=== PATIENT | male | born 1950 | race Hispanic/Latino ===

== ENCOUNTER 2021-05-26 18:57 | Emergency (ER) | payer MEDICARE ==
[~2021-05-26] VITALS: Ht 188 cm; Wt 93.0 kg
[2021-05-26 19:27] LABS: BASOPHILS % (AUTO) 0.5 % (0.0-5.0); EOSINOPHILS % (AUTO) 2.5 % (0.0-8.0); HEMATOCRIT 43.5 % (42-54); LYMPHOCYTES % (AUTO) 17.6 % (21.0-51.0); MEAN CORPUSCULAR HEMOGLOBIN 26.5 pg (27.0-33.0); MEAN CORPUSCULAR VOLUME 82.9 fL (79-99); MONOCYTES % (AUTO) 11.6 % (3.0-13.0); NEUTROPHILS % (AUTO) 67.5 % (40.0-77.0); PLATELET COUNT (AUTO) 172 K/uL (130-400); RED BLOOD CELL COUNT(AUTO) 5.25 MIL/uL (4.50-6.20); RED CELL DISTRIBUTION WIDTH 14.3 % (11.0-15.5); WHITE BLOOD COUNT (AUTO) 6.4 K/uL (4.8-10.8)
[2021-05-26] MEDS ORDERED: 0.9% NACL 500ML IV.SOLN 500 ML IV ONE (19:30)
[2021-05-26] MEDS ORDERED: SOLU-MEDROL 125MG VIAL IVP ONE (19:30)
[2021-05-26] MEDS ORDERED: MAG/ALUM/SIMETH 30 ML UDCUP PO ONE ×2 (19:30→23:30)
[2021-05-26] MEDS ORDERED: FAMOTIDINE 20MG VIAL IV ONE (19:30)
[2021-05-26 19:39] VITALS: BP 169/89
[2021-05-26 19:40] LABS: CREATININE 1.4 mg/dL (0.5-1.5); POTASSIUM 4.1 mmol/L (3.5-5.1)
[2021-05-26 19:49] LABS: ALBUMIN 3.9 g/dL (3.5-5.0); BILIRUBIN,TOTAL 0.4 mg/dL (0.2-1.0); TOTAL PROTEIN, SERUM 7.2 g/dL (6.0-8.3)
[2021-05-26] MEDS ORDERED: METOCLOPRAMIDE 10 MG/2 ML VIAL IVP ONE (20:30)
[2021-05-26] MEDS ORDERED: PANTOPRAZOLE 40 MG/VIAL IVP ONE (20:30)
[2021-05-26 20:57] LABS: APPEARANCE,URINE CLEAR (CLEAR); BILIRUBIN,URINE NEGATIVE (NEGATIVE); COLOR,URINE YELLOW (YELLOW); GLUCOSE, URINE (UA) 500 mg/dL (NEGATIVE); KETONES,URINE NEGATIVE (NEGATIVE); LEUKOCYTE ESTERASE ,URINE NEGATIVE (NEGATIVE); NITRATE,URINE NEGATIVE (NEGATIVE); OCCULT BLOOD,URINE NEGATIVE (NEGATIVE); PH,URINE 6.5 (5.0-8.0); PROTEIN,URINE NEGATIVE (NEGATIVE); UROBILINOGEN,URINE 0.2 mg/dL (0.2-1.0)
[2021-05-26 21:10] LABS: BACTERIA,URINE None Seen /HPF (None Seen); RBC,URINE 0-1 /HPF (0-1); SQUAMOUS EPITHELIAL CELL,UR None Seen /HPF (0-2); WBC,URINE 0-1 /HPF (0-1)
[2021-05-26] MEDS ORDERED: ONDANSETRON 4MG INJ ONE (22:09)
[2021-05-26] MEDS ORDERED: LIDOCAINE HCL 2% VISCOUS 15 ML UDCUP ONE ×2 (22:09→23:06)
[2021-05-26] MEDS ORDERED: ONDANSETRON 4MG INJ IVP ONE (22:30)
[2021-05-26] MEDS ORDERED: LIDOCAINE HCL/PF 4% 40 MG/1 ML 5ML AMP IH ONE (22:30)
[2021-05-26] MEDS ORDERED: LIDOCAINE HCL-MPF 2% 5ML VIAL IH ONE (23:00)
[2021-05-26] MEDS ORDERED: MAG/ALUM/SIMETH 30 ML UDCUP ONE (23:06)
[2021-05-26] MEDS ORDERED: LIDOCAINE HCL 2% VISCOUS 15 ML UDCUP PO ONE (23:30)
[2021-05-26] MEDS ORDERED: FAMO-136 PO (23:53)
[2021-05-26] MEDS ORDERED: ALBU8.5H8 IH (23:58)
[2021-05-27] MEDS ORDERED: med TP (00:03)
== END 2021-05-27 00:18 | disposition home or self-care (01) ==
LOC: EDH 18:57
DX: K21.9 Gastro-esophageal reflux disease without esophagitis (principal); R06.00 Dyspnea, unspecified; Z20.822 Contact with and (suspected) exposure to COVID-19; E11.9 Type 2 diabetes mellitus without complications; I10 Essential (primary) hypertension; Z88.0 Allergy status to penicillin
CPT/HCPCS: 36415; 71045; 80053; 81001; 84484; 85025; 87635; 93005; 94640; 96374; 96375; 99285; C9113; C9803; J2405; J2765; J2930; J3490 ×2; J7040

== ENCOUNTER 2023-03-07 16:10 | Emergency (ER) | payer MEDICARE ==
[~2023-03-07] VITALS: Ht 188 cm; Wt 86.2 kg
[~2023-03-07 16:10] MED LIST: ALBU8.5H8 IH; FAMO-136 PO; med TP
[2023-03-07 18:09] LABS: BASOPHILS # (AUTO) 0.02 K/uL (0.00-0.20); BASOPHILS % (AUTO) 0.5 % (0.0-5.0); EOSINOPHILS # (AUTO) 0.12 K/uL (0.00-0.70); EOSINOPHILS % (AUTO) 2.7 % (0.0-8.0); HEMATOCRIT 35.4 % (42-54); IMMATURE GRANULOCYTE ABSOLUTE 0.02 K/uL (0-1); LYMPHOCYTES # (AUTO) 1.2 K/uL (1.0-4.8); LYMPHOCYTES % (AUTO) 27.2 % (21.0-51.0); MEAN CORPUSCULAR HEMOGLOBIN 22.9 pg (27.0-33.0); MEAN CORPUSCULAR HGB CONC 29.1 g/dL (32.0-36.0); MEAN CORPUSCULAR VOLUME 78.7 fL (79-99); MONOCYTES # (AUTO) 0.7 K/uL (0.1-1.0); MONOCYTES % (AUTO) 16.2 % (3.0-13.0); NEUTROPHILS # (AUTO) 2.3 K/uL (1.8-7.7); NEUTROPHILS % (AUTO) 52.9 % (40.0-77.0); PLATELET COUNT (AUTO) 237 K/uL (130-400); WHITE BLOOD COUNT (AUTO) 4.4 K/uL (4.8-10.8)
[2023-03-07 18:21] LABS: CREATININE 1.6 mg/dL (0.5-1.5); POTASSIUM 4.8 mmol/L (3.5-5.1)
[2023-03-07 18:26] LABS: ALBUMIN 3.2 g/dL (3.5-5.0); BILIRUBIN,TOTAL 0.4 mg/dL (0.2-1.0); TOTAL PROTEIN, SERUM 6.7 g/dL (6.0-8.3)
[2023-03-07] MEDS ORDERED: CEFTRIAXONE 1G VIAL IM ONE (18:30)
[2023-03-07] MEDS ORDERED: LIDOCAINE HCL 1% 20 ML VIAL ONE (19:43)
[2023-03-07 20:00] VITALS: BP 112/68; PULSE 76; RESP 16; O2SAT 99
[2023-03-07] MEDS ORDERED: CEPH500T PO (20:16)
== END 2023-03-07 20:16 | disposition home or self-care (01) ==
LOC: EDH 16:10
DX: T81.89XA Other complications of procedures, not elsewhere classified, initial encounter (principal); L03.116 Cellulitis of left lower limb; E11.9 Type 2 diabetes mellitus without complications; I10 Essential (primary) hypertension; Z88.0 Allergy status to penicillin
CPT/HCPCS: 99283; 80053; 85025; 36415; 96372; J0696

== ENCOUNTER 2024-03-23 19:19 | Observation (INO) | payer MEDICARE ==
[~2024-03-23] VITALS: Ht 188 cm; Wt 87.3 kg
[~2024-03-23 19:19] MED LIST changes: +CEPH500T PO
[2024-03-23 20:50] LABS: BASOPHILS # (AUTO) 0.04 K/uL (0.00-0.20); BASOPHILS % (AUTO) 0.6 % (0.0-5.0); EOSINOPHILS # (AUTO) 0.16 K/uL (0.00-0.70); EOSINOPHILS % (AUTO) 2.3 % (0.0-8.0); HEMATOCRIT 44.7 % (42-54); IMMATURE GRANULOCYTE ABSOLUTE 0.02 K/uL (0-1); LYMPHOCYTES # (AUTO) 1.1 K/uL (1.0-4.8); LYMPHOCYTES % (AUTO) 15.5 % (21.0-51.0); MEAN CORPUSCULAR HEMOGLOBIN 25.4 pg (27.0-33.0); MEAN CORPUSCULAR HGB CONC 31.1 g/dL (32.0-36.0); MEAN CORPUSCULAR VOLUME 81.7 fL (79-99); MONOCYTES # (AUTO) 0.8 K/uL (0.1-1.0); MONOCYTES % (AUTO) 11.8 % (3.0-13.0); NEUTROPHILS # (AUTO) 4.9 K/uL (1.8-7.7); NEUTROPHILS % (AUTO) 69.5 % (40.0-77.0); PLATELET COUNT (AUTO) 155 K/uL (130-400); RED BLOOD CELL COUNT(AUTO) 5.47 MIL/uL (4.50-6.20); WHITE BLOOD COUNT (AUTO) 7.1 K/uL (4.8-10.8)
[2024-03-23 21:06] LABS: CREATININE 1.9 mg/dL (0.5-1.3); POTASSIUM 5.3 mmol/L (3.5-5.1)
[2024-03-23 21:11] LABS: ALBUMIN 3.3 g/dL (3.5-5.0); BILIRUBIN,TOTAL 0.4 mg/dL (0.2-1.0); TOTAL PROTEIN, SERUM 6.7 g/dL (6.0-8.3)
--- NOTE | 2024-03-23 21:53 | HMCIMG ---
Exam Type: CT cervical spine without contrast Clinical Information: new 1 week right submandibular mass , history of H/N cancer Comparison: None Technique: Spiral axial images were performed from the base of the skull down to the thoracic vertebral bodies. Both sagittal and coronal reconstructions were performed. CT Dose Index (CTDI): 12.85 mGy Dose Length Product (DLP): 282.6 total Findings: There are degenerative changes. Degenerative disc disease is noted at multiple levels. There is reversal of normal cervical lordosis consistent with degeneration and spasm. There are no fractures. There is facet hypertrophy at multiple levels. IMPRESSION: Degenerative changes as noted. No acute pathology. No fractures seen. This study was performed using dose reduction techniques to include automated exposure control and/or adjustment of the mA and/or kV according to patient size.
--- NOTE | 2024-03-23 23:51 | HP ---
History of Present Illness Reason for Visit: neck pain History of Present Illness Mr. Salazar is a 73-year-old male that was seen and examined today on 03/23/2024. Patient is a good historian and personal health. Patient reports that he came to the emergency department with a chief complaint of neck pain. Onset was two days ago. Location is to right submandibular area. Duration is constant. There was no alleviating factors. Character is describe d as throbbing pain. Symptoms are aggravated with palpation. Patient denies any associated fever or chills. Patient reports a past medical history of "neck cancer." Today in the emergency department CBC unremarkable, BUN 20, creatinine 1.9, no urinalysis has been collected or sent to lab, CT of the soft tissue neck shows did not degenerative changes to the C-spine. Area of the attention was not addressed by radiology service in radiology report therefore emergency room physician contacted radiologist on-call, who recommended that patient get an MR I in the a.m. for further evaluation. Past Medical History ADDITIONAL PAST MEDICAL HISTORY: [Hypertension, CAD, " neck cancer, "Diabetes mellitius type2, GERD] SOCIAL HISTORY: [Negative for smoking, alcohol use, drug use. Patient lives alone. Patient is a retired teacher. Patient has good access to health care through his insurance. Patient is typically independent of all his ADLs. Patient denies difficulty pain is bills. Patient usually lives in [place] but is visiting this geographical location for 2-3 months.] SURGICAL HISTORY: [CABG, tonsillectomy, endoscopy x3] Review of Systems General: No Fever, No Chills, No Night Sweats, No Fatigue, No Malaise, No Appetite, No Other HEENT: No Head Aches, No Visual Changes, No Eye Pain, No Ear Pain, No Dysphasia, No Sinus Congestion, No Post Nasal Drip, No Sore Throat, No Other Pulmonary: No Dyspnea, No Cough, No Pleuritic Chest Pain, No Other Cardiovascular: No: Chest Pain, Palpitations, Orthopnea, Paroxysmal Noc. Dyspnea, Edema, Lt Headedness, Other Gastrointestinal: No: Nausea, Vomiting, Abdominal Pain, Diarrhea, Constipation, Melena, Hematochezia, Other Genitourinary: No Dysuria, No Frequency, No Incontinence, No Hematuria, No Retention, No Other Musculoskeletal: neck pain; No: other, shoulder pain, arm pain, back pain, hand pain, leg pain, foot pain Skin: No Urticaria, No Rash, No Other Neurological: No: Weakness, Numbness, Incoordination, Change in speech, Confusion, Seizures, Other Allergies: Coded Allergies: Penicillins (Unverified Allergy, Unknown, 05/26/21) Scheduled Cephalexin (Cephalexin), 500 MG PO TID Famotidine (Pepcid), 20 MG PO BID Scheduled PRN Albuterol Sulfate (Proair Hfa), 8.5 GM IH Q6HPRN PRN for SHORTNESS OF BREATH Durable Medical Equipment [med], UNIT TP AD, (DME) Exam Vital Signs Vital Signs Date Time Temp Pulse Resp B/P (MAP) Pulse Ox O2 Delivery O2 Flow Rate FiO2 03/23/24 21:56 97.3 88 20 130/84 98 Room Air* 0 21 General Appearance: Alert, Oriented X3, Cooperative, No acute distress, Other (Right submandibular swelling and tenderness) HEENT: Atraumatic, EOMI Respiratory: Clear to auscultation, Normal air movement, NL respiratory effort Cardiovascular: Normal S1, Normal S2 Abdominal: Normal bowel sounds, Soft, No tenderness Extremities: No edema Skin: No significant lesion Neuro: Normal gait, Normal speech, Strength at 5/5 X4 ext, Sensation intact, Cranial nerves 3-12 NL Psych/Mental Status: Mental status NL, Mood NL, Thoughts/Content NL Assessment/Plan ASSESSMENT: [ Acute kidney injury, POA Hypertension, POA Neck pain, POA Diabetes mellitius type2 CAD] PLAN: [ Admit patient to medical floor as inpatient status. Calculate FENA Check urine sodium, creatinine, osmolality Avoid nephrotoxic agents when possible Renally dose all medications when possible Consider consulting Nephrology service if any worsening renal function or evidence of ATN. Monitor patient's labs. Weight patient daily. Monitor intake and output. IV fluid maintenance therapy lactated Ringer's at 75 mL/HR Hydralazine 10 mg IV every 4 hours for systolic blood pressure greater than 160 mmHg MRI of face and neck in the a.m.. , follow up with the results Check hemoglobin A1c in a.m. Glucometer checks a.c. and HS 1800 ADA diet Humulin R sliding scale 1/2 dose GI prophylaxis, famotidine 40 mg by mouth once daily. DVT prophylaxis, heparin 5000 units subcutaneously twice daily. ADVANCED CARE PLANNING 1. Which of the following were discussed? Hospice Care - Yes Therapeutic options - Yes Advance Directives - Yes- patient states he does not have any advance directives in place at this time, however his daughter Deonte Salazar can make decisions for him if he becomes unable. Other discussions - patient wishes to remain a full code At this time 2. Discussed with who? patient 3. Voluntary nature of this service was explained to the patient? Yes 4. Amount of time spent - ___ 16 minutes ____ 5. Reviewed by Physician? (if this service was performed by NPP) Yes This document was generated in part using voice recognition software, occasional wrong word or sound alike substitutions may have occurred due to the inherent limitations of voice recognition software. Read the chart carefully and recognize using context, where the substitutions have occurred. Although every effort was made to edit the content, plasterer maintenance and typing errors may occur ATTESTATION BY PHYSICIAN I have seen and examined the patient. I reviewed the documentation, medical decision making, and treatment plan as noted by the mid-level provider above. I agree with the findings and plan of care. SERVANDO SALAZAR [facility] Mar 23, 2024 23:51
--- NOTE | 2024-03-23 23:57 | ERN ---
General Chief Complaint: Other Problems Stated Complaint: THROAT SWELLING Time Seen by MD: 19:39 History of Present Illness Initial Comments Mr. Tello is a very pleasant 73-year-old male who comes in today with a chief complaint of neck pain. Patient reports that he has a history of head and neck cancer in his status post surgery in the remote past. Patient reports that he is having increased swelling in the right neck. Patient denies any other symptoms. Allergies: Coded Allergies: Penicillins (Unverified Allergy, Unknown, 05/26/21) Home Meds Active Scripts Cephalexin (Cephalexin) 500 Mg Tablet, 500 MG PO TID for 7 Days, #21 TAB Prov:KELSEY ROCK [employer] 03/07/23 [med] No Conflict Check, UNIT TP AD, #1 0 Refills Medical wedge for cough / bed to elevate head / rest back Prov:ALISIA LAGUNAS MD 05/27/21 Albuterol Sulfate (Proair Hfa) 8.5 Gm Hfa.aer.ad, 8.5 GM IH Q6HPRN PRN for SHORTNESS OF BREATH, #1 INHALER Prov:KAREEM MEDINA [employer] 05/26/21 Famotidine (Pepcid) 20 Mg Tablet, 20 MG PO BID, #7 TAB Prov:FITTINGKAREEM [employer] 05/26/21 Past Medical History Past Medical History: Cancer, Diabetes-Type II, Hypertension Past Surgical History: Other Surgical History Other: THROAT SX Family History Family History: Negative Social History Social History: Negative, Lives with family ROS Dictation Constitutional: Negative for fever,chills, and weight loss Eyes: Negative for injury, pain,redness, and discharge ENT: Positive for neck pain Cardiovascular: Negative for chest pain, palpitations, and edema Respiratory: Negative for shortness of breath, cough, and wheezing, Abdomen/GI: Negative for abdominal pain, nausea, vomiting, diarrhea, and constipation Back: Negative for injury and pain : Negative for injury, bleeding and discharge MS/Extremity: Negative for injury and deformity Skin: Negative for rash, and discoloration Neuro: Negative for headache, weakness, numbness, tingling, and seizure Psych: Negative for suicide ideation, homicidal ideation, and hallucinations Physical Exam Physical Exam Dictation General: awake, alert, NAD Head/Face: Normocephalic, atraumatic Eyes: PERRL, EOMI, vision at baseline ENT: Pain with palpation of the right submandibular area. Neck: Trachea midline, supple, Cardiovascular: RRR, normal S1/S2, No MRGs, no JVD Respiratory: CTAB, no respiratory distress, No rales or wheezes Abdomen: Soft, non-tender, non-distended, normal bowel sounds Skin: Warm, dry, normal turgor, no rash MS/Extremity: Pulses equal, no cyanosis, neurovascular intact, FROM Neuro: COAx4, GCS 15, strength 5/5 Results Laboratory and Microbiology Lab and Micro Result Laboratory Tests Test 03/23/24 20:44 White Blood Count 7.1 K/uL (4.8-10.8) Red Blood Count 5.47 MIL/uL (4.50-6.20) Hemoglobin 13.9 g/dL (14.0-18.0) L Hematocrit 44.7 % (42-54) Mean Corpuscular Volume 81.7 fL (79-99) Mean Corpuscular Hemoglobin 25.4 pg (27.0-33.0) L Mean Corpuscular Hemoglobin Concent 31.1 g/dL (32.0-36.0) L Red Cell Distribution Width 22.0 % (11.0-15.5) H Platelet Count 155 K/uL (130-400) Mean Platelet Volume 9.7 fL (7.5-10.5) Immature Granulocyte % (Auto) 0.3 % (0-1) Neutrophils (%) (Auto) 69.5 % (40.0-77.0) Lymphocytes (%) (Auto) 15.5 % (21.0-51.0) L Monocytes (%) (Auto) 11.8 % (3.0-13.0) Eosinophils (%) (Auto) 2.3 % (0.0-8.0) Basophils (%) (Auto) 0.6 % (0.0-5.0) Neutrophils # (Auto) 4.9 K/uL (1.8-7.7) Lymphocytes # (Auto) 1.1 K/uL (1.0-4.8) Monocytes # (Auto) 0.8 K/uL (0.1-1.0) Eosinophils # (Auto) 0.16 K/uL (0.00-0.70) Basophils # (Auto) 0.04 K/uL (0.00-0.20) Absolute Immature Granulocyte (auto 0.02 K/uL (0-1) Nucleated Red Blood Cells 0.0 % (0.0-0.19) Red Blood Cell Morphology See comments Sodium Level 144 mmol/L (136-145) Potassium Level 5.3 mmol/L (3.5-5.1) H Chloride Level 107 mmol/L (101-111) Carbon Dioxide Level 34 mmol/L (21-32) H Blood Urea Nitrogen 20 mg/dL (7-18) H Creatinine 1.9 mg/dL (0.5-1.3) H Glomerular Filtration Rate Calc 37 mL/min (>90) Random Glucose 109 mg/dL (70-105) H Total Calcium 9.1 mg/dL (8.5-10.1) Total Bilirubin 0.4 mg/dL (0.2-1.0) Aspartate Amino Transf (AST/SGOT) 19 U/L (10-37) Alanine Aminotransferase (ALT/SGPT) 28 U/L (12-78) Alkaline Phosphatase 106 U/L (50-136) Total Protein 6.7 g/dL (6.0-8.3) Albumin 3.3 g/dL (3.5-5.0) L MDM Patient appears to have renal failure and elevated potassium. Patient also has a elevated blood pressure. Patient will be admitted to the hospital for hypertensive emergency as well as needing an MRI of the neck for further evaluation of his mass ED Course Orders Procedure Category Date Status Time Cbc With Differential LAB 03/23/24 Complete 20:09 Comprehensive LAB 03/23/24 Complete Metabolic Panel 20:09 Ct Neck Soft Tiss W/O CT 03/23/24 Resulted Contrast 20:09 Sodium Zirconium PHA 03/23/24 Complete Cyclosilicate 23:30 0.9%Nacl 1000ml (Ns PHA 03/23/24 In Process 1000ml) 23:30 Current Medications Medications (Trade) Dose Ordered Sig/Dinesh Route PRN Reason Start Time Stop Time Status Last Admin Dose Admin Sodium Chloride 822 ml @ 274 mls/hr ONCE ONCE IV 03/23/24 23:30 03/24/24 02:29 Sodium Zirconium Cyclosilicate (Lokelma) 5 gm ONCE ONCE PO 03/23/24 23:30 03/23/24 23:31 DC Vital Signs Date Time Temp Pulse Resp B/P (MAP) Pulse Ox O2 Delivery O2 Flow Rate FiO2 03/23/24 21:56 97.3 88 20 130/84 98 Room Air* 0 21 03/23/24 19:25 97.9 86 20 132/83 98 Room Air* 0 21 03/23/24 19:21 97.9 82 16 133/94 97 Room Air DX & DISP Disposition: Inpatient Departure Impression: Primary Impression: Mass of right side of neck Additional Impression: Acute kidney injury Condition: Stable Referrals: SELF,REFERRAL (PCP) DAHLIA BEYER MD Mar 23, 2024 23:57
[2024-03-24] VITALS (7 sets, daily range): BP systolic 118–160; BP diastolic 69–97; PULSE 87–94; RESP 18–20; TEMP 97.8–100.2; O2SAT 99
[2024-03-24] MEDS: SODIUM ZIRCONIUM CYCLOSILICATE 5 GM POWD.PACK PO ONE (00:14)
[2024-03-24] MEDS: [UNRECOGNIZED DRUG - OTHER] IV ONE (00:14)
[2024-03-24] MEDS ORDERED: ondanSETRON 4MG INJ IV PRN (01:00)
[2024-03-24] MEDS ORDERED: hydrALAZine 20MG/ML VIAL IV PRN (01:00)
[2024-03-24] MEDS ORDERED: morPHINE 2 MG SYG IVP PRN (01:00)
[2024-03-24] MEDS: LACTATED RINGERS 1000ML 1,000 ML IV SCH (01:07)
--- NOTE | 2024-03-24 01:34 | NUR ---
CALLED FOR REPORT NURSE IS OUT TO LUNCH WILL CALL BACK
[2024-03-24] MEDS ORDERED: APIX5TAB PO (02:17)
[2024-03-24] MEDS ORDERED: LANS30CA55 PO (02:17)
[2024-03-24] MEDS ORDERED: FERR324T PO (02:17)
[2024-03-24] MEDS ORDERED: SUCR1ORA15 PO (02:17)
[2024-03-24] MEDS ORDERED: LEVO88TA7 PO (02:17)
[2024-03-24] MEDS ORDERED: IPRA3S EN (02:17)
[2024-03-24] MEDS ORDERED: NITR0.4T50 SL (02:17)
[2024-03-24] MEDS ORDERED: METO25 PO (02:17)
[2024-03-24] MEDS ORDERED: AMIO200T68 PO (02:17)
[2024-03-24] MEDS ORDERED: ATOR20TA65 PO (02:17)
[2024-03-24] MEDS ORDERED: EMPA25TA PO (02:17)
[2024-03-24] MEDS ORDERED: FINA5TAB41 PO (02:17)
[2024-03-24] MEDS ORDERED: CHOL500062 PO (02:17)
[2024-03-24] MEDS: INSULIN humuLIN R 100 UNIT/ML 3ML SQ SCH (05:21)
[2024-03-24 06:26] LABS: BASOPHILS # (AUTO) 0.03 K/uL (0.00-0.20); BASOPHILS % (AUTO) 0.4 % (0.0-5.0); EOSINOPHILS % (AUTO) 2.6 % (0.0-8.0); HEMATOCRIT 44.2 % (42-54); IMMATURE GRANULOCYTE ABSOLUTE 0.03 K/uL (0-1); LYMPHOCYTES # (AUTO) 1.4 K/uL (1.0-4.8); LYMPHOCYTES % (AUTO) 18.3 % (21.0-51.0); MEAN CORPUSCULAR HEMOGLOBIN 25.7 pg (27.0-33.0); MEAN CORPUSCULAR HGB CONC 31.9 g/dL (32.0-36.0); MEAN CORPUSCULAR VOLUME 80.5 fL (79-99); MONOCYTES # (AUTO) 0.8 K/uL (0.1-1.0); MONOCYTES % (AUTO) 10.5 % (3.0-13.0); NEUTROPHILS # (AUTO) 5.3 K/uL (1.8-7.7); NEUTROPHILS % (AUTO) 67.8 % (40.0-77.0); PLATELET COUNT (AUTO) 160 K/uL (130-400); RED BLOOD CELL COUNT(AUTO) 5.49 MIL/uL (4.50-6.20); RED CELL DISTRIBUTION WIDTH 22.2 % (11.0-15.5); WHITE BLOOD COUNT (AUTO) 7.8 K/uL (4.8-10.8)
[2024-03-24 06:38] LABS: CREATININE 1.5 mg/dL (0.5-1.3); MAGNESIUM 1.9 mg/dL (1.80-2.40); PHOSPHORUS 4.1 mg/dL (2.5-4.9); POTASSIUM 4.2 mmol/L (3.5-5.1)
[2024-03-24 06:41] LABS: HEMOGLOBIN A1C 6.2 % (4.0-6.0)
[2024-03-24] MEDS: HEParin 5,000 UNIT VIAL SQ SCH (09:00)
[2024-03-24] MEDS: PANTOPrazole 40 MG TAB DR PO SCH (09:22)
[2024-03-24] MEDS: acetaMINOPHEN 325 MG TAB PO PRN (09:29)
[2024-03-24 11:35] LABS: CREATININE,URINE RANDOM 89.99 mg/dL (30-135)
--- NOTE | 2024-03-24 12:54 | PN ---
[facility] PROGRESS NOTE Date of Service: Mar 24, 2024 Time of Service: 11:20 SUBJECTIVE: The patient is a 73-year-old male with a past medical history of hypertension, CAD, post CABG in November 13, 2023, type 2 diabetes mellitus s/p amputation on left foot metatarsals, GERD, neck cancer in remission 15 years ago, and chronic kidney disease presented to ED on 03/23 with a chief complaint of 2 days of constant, throbbing type of neck pain on the right submandibular area. He has been following the ENT since resection of neck cancer since past 15 years consistently and the last appointment was 1 week ago. About 5 days ago, he has noticed a swelling in the submandibular area and thought of visiting ER yesterday since it was not subsiding down. On presentation, vitals were within normal limits. Labs showed potassium 5.3, carbon dioxide 34, BUN 20, creatinine 1.9, GFR 37. CT neck soft tissue without contrast showed postop changes. Area of attention was not addressed by the radiology service in the radiology report therefore emergency room physician contacted radiologist sales promotion officer, who recommended the patient to get an MRI in a.m. for further evaluation. CT cerv ical spine without contrast showed only degenerative changes. He received 0.9% Na Cl bolus and lokemia 5 g p.o. for hyperkalemia. He was admitted on the medical surgical floor for the management of JORGE and mass of the right side of the neck on submandibular region. 03/24- The patient was examined at bedside. He denies any complaints or concerns. He had 100.2 temperature today morning, has been running slightly hypertensive with systolic blood pressure in 140s. There were erythema, slight tenderness noted on bilateral legs, per patient he had reaction after CABG and the blisters were developed. He has been seeing a clinical physician assistant, PCP and the recommendations have been to apply petroleum jelly and vinegar daily. We have consulted Wound management, recommendations are pending. Labs: Potassium improved to 4.2 From 5.3, carbon dioxide 30, BUN went down to 19 from 20, creatinine went down to 1.5 From 1.9, GFR improved to 49 from 37, hemoglobin A1c 6.2. We are pending MRI head and neck for further evaluation of the submandibular region swelling. REVIEW OF SYSTEMS CONSTITUTIONAL: Denies fevers, chills, or night sweats. No unintentional weight loss reported. NEUROLOGICAL: Denies headache, amaurosis fugax, motor weakness, sensory deficit, vertigo/spinning sensation, gait abnormalities, or tremors. ENT: Swelling was noted over her right submandibular region No hearing loss, otalgia, otorrhea, rhinitis, rhinorrhea, hoarseness, or sore throat. CARDIOVASCULAR: Denies any exertional angina, dyspnea on exertion, orthopnea, paroxysmal nocturnal dyspnea, palpitations, life-threatening arrhythmias, claudication. PULMONARY: Denies any shortness of breath, cough, phlegm/sputum, hemoptysis, pleuritic chest pain. SLEEP: Denies morning headaches, daytime somnolence or napping. Denies difficulty falling asleep, staying asleep, waking from sleep. Denies knowledge of snoring. GASTROINTESTINAL: Denies any type of dysphagia to either liquids or solids. Denies nausea, vomiting, pyrosis, early satiety, abdominal pain, diarrhea, constipation, or changes in stool consistency or caliber. Denies coffee-ground emesis, hematemesis, hematochezia, or melanotic stools. GENITOURINARY: Denies frequency, urgency, nocturia, hematuria or incontinence (Storage/Irritative symptoms.) Low urinary stream, straining to void, urinary intermittency or hesitancy, splitting of the voiding stream, terminal dribbling. ENDOCRINOLOGIC: Denies polyuria, polydipsia, polyphagia or heat/cold intolerances. HEMATOLOGIC: Denies thrombophilia/previous clots, or coagulopathy/bleeding disorders. ONCOLOGIC: Denies personal history of malignancy. DERMATOLOGIC: Erythema over bilateral legs extending from knee to ankle. PSYCHIATRIC: Denies any suicidal or homicidal ideation. Denies hallucinations. PHYSICAL EXAM GENERAL APPEARANCE: The patient is awake, alert, and oriented, in no acute cardiopulmonary distress. NEUROLOGICAL: Cranial nerves II-XII grossly intact. Motor is 5/5 in bilateral upper and lower extremities proximal to distal. No sensory deficits. HEENT: Face is symmetric. Pupils are equal and reactive. Extraocular movements are intact. NECK: Supple. Right side Submandibular region swelling noted, No JVD. No thyr omegaly. No submental, pre-/postauricular, occipital or supraclavicular lymphadenopathy. CHEST: Normal chest expansion. No Telemetry. LUNGS: Absence of any rales, rhonchi or any wheezing. CARDIOVASCULAR: Regular. S1 and S2 normal. No appreciable rubs, murmurs or gallops. ABDOMEN: Soft, nontender, and nondistended. There is no rebound, voluntary guarding, or rigidity. : Deferred. No Hernandez. EXTREMITIES: Non-edematous and not cyanotic. No clubbing. Good capillary refill. SKIN: Erythema over bilateral legs extending from knee to ankle.. Vital Signs (last 8hr) Date Time Temp Pulse Resp B/P (MAP) Pulse Ox O2 Delivery O2 Flow Rate FiO2 03/24/24 12:00 99.1 90 19 118/69 97 Room Air 03/24/24 09:29 100.2 03/24/24 08:00 100.2 94 19 147/94 99 Room Air LABS: Laboratory: Test 03/24/24 11:23 03/24/24 11:20 03/24/24 06:22 03/23/24 20:44 Range/Units Whole Blood Glucose 111 H 70-110 MG/DL Urine Random Creatinine 89.99 30-135 mg/dL Urine Random Sodium 95 40-220 mmol/l White Blood Count 7.8 4.8-10.8 K/uL Red Blood Count 5.49 4.50-6.20 MIL/uL Hemoglobin 14.1 14.0-18.0 g/dL Hematocrit 44.2 42-54 % Mean Corpuscular Volume 80.5 79-99 fL Mean Corpuscular Hemoglobin 25.7 L 27.0-33.0 pg Mean Corpuscular Hemoglobin Concent 31.9 L 32.0-36.0 g/dL Red Cell Distribution Width 22.2 H 11.0-15.5 % Platelet Count 160 130-400 K/uL Mean Platelet Volume 9.2 7.5-10.5 fL Immature Granulocyte % (Auto) 0.4 0-1 % Neutrophils (%) (Auto) 67.8 40.0-77.0 % Lymphocytes (%) (Auto) 18.3 L 21.0-51.0 % Monocytes (%) (Auto) 10.5 3.0-13.0 % Eosinophils (%) (Auto) 2.6 0.0-8.0 % Basophils (%) (Auto) 0.4 0.0-5.0 % Neutrophils # (Auto) 5.3 1.8-7.7 K/uL Lymphocytes # (Auto) 1.4 1.0-4.8 K/uL Monocytes # (Auto) 0.8 0.1-1.0 K/uL Eosinophils # (Auto) 0.20 0.00-0.70 K/uL Basophils # (Auto) 0.03 0.00-0.20 K/uL Absolute Immature Granulocyte (auto 0.03 0-1 K/uL Nucleated Red Blood Cells 0.0 0.0-0.19 % Sodium Level 144 136-145 mmol/L Potassium Level 4.2 3.5-5.1 mmol/L Chloride Level 108 101-111 mmol/L Carbon Dioxide Level 30 21-32 mmol/L Blood Urea Nitrogen 19 H 7-18 mg/dL Creatinine 1.5 H 0.5-1.3 mg/dL Glomerular Filtration Rate Calc 49 >90 mL/min Random Glucose 105 70-105 mg/dL Hemoglobin A1c 6.2 H 4.0-6.0 % Estimated Average Glucose (eAG) 131 H 70-126 mg/dL Total Calcium 8.8 8.5-10.1 mg/dL Phosphorus Level 4.1 2.5-4.9 mg/dL Magnesium Level 1.90 1.80-2.40 mg/dL Red Blood Cell Morphology See comments Total Bilirubin 0.4 0.2-1.0 mg/dL Aspartate Amino Transf (AST/SGOT) 19 10-37 U/L Alanine Aminotransferase (ALT/SGPT) 28 12-78 U/L Alkaline Phosphatase 106 50-136 U/L Total Protein 6.7 6.0-8.3 g/dL Albumin 3.3 L 3.5-5.0 g/dL Current Medications Medications (Trade) Dose Ordered Sig/Dinesh Route PRN Reason Start Time Stop Time Status Last Admin Dose Admin Acetaminophen (TYLenol 325MG TAB) 650 mg Q6H PRN PO TEMPERATURE GREATER THAN 101.5 03/24/24 01:00 04/23/24 00:59 03/24/24 09:29 650 MG Apixaban (EliquIS) 5 mg BID PO 03/24/24 21:00 04/23/24 20:59 Atorvastatin Calcium (LIPItor 20MG) 20 mg HS PO 03/25/24 21:00 04/24/24 20:59 Finasteride (PROscar 5 MG TAB) 5 mg HS PO 03/24/24 21:00 04/23/24 20:59 Heparin Sodium (Porcine) (HEParin 5,000 UNIT VIAL) 5,000 unit BID SQ 03/24/24 09:00 03/24/24 11:49 DC Hydralazine HCl (APRESOLine 20MG INJ) 10 mg Q6H PRN IV For:SBP above 160;DBP above 90 03/24/24 01:00 04/23/24 00:59 Insulin Human Regular (humuLIN R 100 UNIT/ML 3ML) INSULIN SLIDING SCAL... ACHS SQ 03/24/24 07:30 04/23/24 07:29 Lactated Ringer's 1,000 ml @ 75 mls/hr [id number] IV 03/24/24 01:00 04/23/24 00:59 03/24/24 01:07 75 MLS/HR Levothyroxine Sodium (SYNTHroid 88MCG TAB) 88 mcg SYN PO 03/25/24 06:30 04/24/24 06:29 Metoprolol Tartrate (loprESSOR) 25 mg BID PO 03/24/24 21:00 04/23/24 20:59 Morphine Sulfate (morPHINE 2MG SYG) 2 mg Q4H PRN IVP SEVERE PAIN (7-10) 03/24/24 01:00 03/31/24 00:59 Ondansetron HCl (zoFRAN 4MG INJ) 4 mg Q6H PRN IV NAUSEA/VOMITING 03/24/24 01:00 04/23/24 00:59 Pantoprazole Sodium (PROTonix 40MG TAB) 40 mg DAILY PO 03/24/24 09:00 04/23/24 08:59 03/24/24 09:22 40 MG DIAGNOSTICS / RADIOLOGY: [facility] [address] [place] [address] IMAGING REPORT Signed PATIENT: DAHLIA SALAZAR MR#: [id number] : 1950 SEX: M AGE: 73 LOCATION: [facility] ORDER 10 STATUS: REG REPORT#: [id number] SERVICE 08 REASON: new 1 week right submandibular mass , history of H/N cancer ORDERING PHYSICIAN: DAHLIA BEYER MD PROCEDURE: NKSOFTI WO - CT NECK SOFT TISS W/O CONTRAST ADDENDUM REPORT Case was discussed with the referring physician. There appears to postop changes in the right centimeter area. Right seminal gland is not well visualized. There are cervical lymph nodes. For evaluation with MRI with and without contrast is recommended. There is atherosclerosis. DICTATED BY: CHERRIE RAYMOND MD DATE: 03/23/242330 ELECTRONICALLY SIGNED BY: CHERRIE RAYMOND MD DATE: 03/23/242336 Exam Type: CT cervical spine without contrast Clinical Information: new 1 week right submandibular mass , history of H/N cancer Comparison: None Technique: Spiral axial images were performed from the base of the skull down to the thoracic vertebral bodies. Both sagittal and coronal reconstructions were performed. CT Dose Index (CTDI): 12.85 mGy Dose Length Product (DLP): 282.6 total Findings: There are degenerative changes. Degenerative disc disease is noted at multiple levels. There is reversal of normal cervical lordosis consistent with degeneration and spasm. There are no fractures. There is facet hypertrophy at multiple levels. IMPRESSION: Degenerative changes as noted. No acute pathology. No fractures seen. This study was performed using dose reduction techniques to include automated exposure control and/or adjustment of the mA and/or kV according to patient size. DICTATED BY: AYAH EDWARDS MD DATE: 03/23/242148 ELECTRONICALLY SIGNED BY: AYAH EDWARDS MD DATE: 03/23/242152 ASSESSMENT: Acute kidney injury, GFR improving, POA Right submandibular swelling, POA H/o neck cancer, s/p resection of the tumor 15 years ago, in remission CAD s/p CABG in October, Hypertension, POA Neck pain, POA Diabetes mellitus type2 Gastroesophageal reflux disease PLAN: Acute kidney injury * Continue LR 75 mL/hour * Calculate FENA * Urine sodium, creatinine, osmolality ordered. The patient is yet providing the sample. Follow up when the results are available. * Avoid nephrotoxic agents when possible * Monitor intake and output. Right submandibular swelling, POA H/o neck cancer, s/p resection of the tumor 15 years ago, in remission * MRI of head and neck is pending today. Hypertension, POA * Hydralazine 10 mg IV every 4 hours for systolic blood pressure greater than 160 mmHg Diabetes mellitus type2 * Continue insulin sliding scale * Continue consistent carbohydrate diet * GI prophylaxis, famotidine 40 mg by mouth once daily. * Continue Eliquis 5 mg p.o. daily * Home Medications were reconciled and resumed. We are pending on MRI head and neck to evaluate submandibular swelling and neck pain. Follow up with the results when available and further assessment and plan will be created ATTESTATION BY PHYSICIAN I have seen and examined the patient. I reviewed the documentation, medical decision making, and treatment plan as noted by the resident provider above. I agree with the findings and plan of care. Latosha Palm MD, MANALI MD Mar 24, 2024 12:54
--- NOTE | 2024-03-24 13:37 | NUR ---
[facility] Consult: Patient assessed by wound healing team. See wound assessment. Assessment and recommendations provided to primary nurse. Education provided. Addendum: 03/24/24 at 1405 by DALE LEES RN RN/ Amended: Links added.
--- NOTE | 2024-03-24 14:07 | CONS ---
CONSULTATION NOTE Date of Service: Mar 24, 2024 Reason for Consultation: [ Blisters to bilateral lower extremities ] Requesting Physician: [Hospitalist ] HISTORY OF PRESENT ILLNESS: [03/24/24 73 yo female presents to ED with complaint of neck pain with increased swelling in right neck. . Pt admitted for mass of right side of neck and acute kidney injury. Wound care consulted for bilateral legs show some erythema, slight tenderness with blisters. Pt seen at bedside. Primary nurse Neci at visit. Family not present during visit. ] REVIEW OF SYSTEMS CONSTITUTIONAL: Denies fever, chills, or fatigue. HEAD/FACE: No signs of trauma. EENT: Denies eye pain, blurred vision, double vision, or light sensitivity. Swelling to right neck RESPIRATORY: Denies shortness of breath, cough, wheezing CARDIOVASCULAR: Denies chest pain, palpitation, syncope GASTROINTESTINAL/ABDOMINAL: Denies abdominal pain, constipation, diarrhea, nausea or vomiting GENITOURINARY: Denies dysuria or hematuria. MUSCULOSKELETAL: Denies joint pain, tenderness, or trauma. Neck pain INTEGUMENTARY: Denies rash or itchiness NEUROLOGICAL/PSYCH: Denies anxiety, depression, heat or cold intolerance. 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 Pupils equal and reactive. HENT: No oral thrush seen, moist Oral mucosa NECK: Supple, no JVD or thyromegaly. LUNGS: Good air entry. No rales, no rhonchi. CARDIOVASCULAR: S1, S2 regular. No murmur heard. ABDOMEN: Soft, non tender, bowel sounds present, no organomegaly CENTRAL NERVOUS SYSTEM: Awake, alert, oriented x 3. No focal deficits. SKIN: No rashes, no swelling. LYMPHATICS: No peripheral lymphadenopathy MUSCULOSKELETAL: No joint swelling, erythema or tenderness. EXTREMITIES: No cyanosis or clubbing BACK: No deformity, no pressure ulcer. GENITOURINARY: No dysuria or hematuria Vital Sign (Last 24 Hours) 03/24/24 03/24/24 02:04 12:00 Temp 99.1 Pulse 90 Resp 19 B/P (MAP) 118/69 Pulse Ox 97 O2 Delivery Room Air O2 Flow Rate 0 FiO2 21 Intake & Output (last 24hrs) 03/23/24 03/23/24 03/24/24 15:00 23:00 07:00 Intake Total 300.0 ml Balance 300.0 ml LABS: Laboratory: Test 03/24/24 11:23 03/24/24 11:20 03/24/24 06:22 03/23/24 20:44 Range/Units Whole Blood Glucose 111 H 70-110 MG/DL Urine Random Creatinine 89.99 30-135 mg/dL Urine Random Sodium 95 40-220 mmol/l White Blood Count 7.8 4.8-10.8 K/uL Red Blood Count 5.49 4.50-6.20 MIL/uL Hemoglobin 14.1 14.0-18.0 g/dL Hematocrit 44.2 42-54 % Mean Corpuscular Volume 80.5 79-99 fL Mean Corpuscular Hemoglobin 25.7 L 27.0-33.0 pg Mean Corpuscular Hemoglobin Concent 31.9 L 32.0-36.0 g/dL Red Cell Distribution Width 22.2 H 11.0-15.5 % Platelet Count 160 130-400 K/uL Mean Platelet Volume 9.2 7.5-10.5 fL Immature Granulocyte % (Auto) 0.4 0-1 % Neutrophils (%) (Auto) 67.8 40.0-77.0 % Lymphocytes (%) (Auto) 18.3 L 21.0-51.0 % Monocytes (%) (Auto) 10.5 3.0-13.0 % Eosinophils (%) (Auto) 2.6 0.0-8.0 % Basophils (%) (Auto) 0.4 0.0-5.0 % Neutrophils # (Auto) 5.3 1.8-7.7 K/uL Lymphocytes # (Auto) 1.4 1.0-4.8 K/uL Monocytes # (Auto) 0.8 0.1-1.0 K/uL Eosinophils # (Auto) 0.20 0.00-0.70 K/uL Basophils # (Auto) 0.03 0.00-0.20 K/uL Absolute Immature Granulocyte (auto 0.03 0-1 K/uL Nucleated Red Blood Cells 0.0 0.0-0.19 % Sodium Level 144 136-145 mmol/L Potassium Level 4.2 3.5-5.1 mmol/L Chloride Level 108 101-111 mmol/L Carbon Dioxide Level 30 21-32 mmol/L Blood Urea Nitrogen 19 H 7-18 mg/dL Creatinine 1.5 H 0.5-1.3 mg/dL Glomerular Filtration Rate Calc 49 >90 mL/min Random Glucose 105 70-105 mg/dL Hemoglobin A1c 6.2 H 4.0-6.0 % Estimated Average Glucose (eAG) 131 H 70-126 mg/dL Total Calcium 8.8 8.5-10.1 mg/dL Phosphorus Level 4.1 2.5-4.9 mg/dL Magnesium Level 1.90 1.80-2.40 mg/dL Red Blood Cell Morphology See comments Total Bilirubin 0.4 0.2-1.0 mg/dL Aspartate Amino Transf (AST/SGOT) 19 10-37 U/L Alanine Aminotransferase (ALT/SGPT) 28 12-78 U/L Alkaline Phosphatase 106 50-136 U/L Total Protein 6.7 6.0-8.3 g/dL Albumin 3.3 L 3.5-5.0 g/dL DIAGNOSTICS / RADIOLOGY: [ ] PROBLEM LIST : Medical Problems: (1) Acute kidney injury ICD Codes: N17.9 - Acute kidney failure, unspecified (2) Mass of right side of neck ICD Codes: R22.1 - Localized swelling, mass and lump, neck Venous ulcers to right lower extremity Venous ulcers to left lower extremity PLAN: [ Venous ulcers to right lower extremity - anicep Venous ulcers to left lower extremity - betadine] YOVANY VELAZQUEZ Mar 24, 2024 14:07
--- NOTE | 2024-03-24 16:16 | NUR ---
Patient refused to continue with neck MRI.
--- NOTE | 2024-03-24 16:43 | HMCIMG ---
MRI FACE WO CONT REASON: right submandibular pain and swelling COMPARISON: None TECHNIQUE: Routine imaging protocol was performed in the axial, sagittal and coronal plane with T1, proton density, T2 and gradient recalled sequences. Patient had difficulty breathing during the axial images, there is significant motion artifact, patient requested the exam. FINDINGS: Left submandibular gland appears unremarkable. The right submandibular gland appears absent. There are no focal fluid collections. There is no increased signal intensity to suggest inflammation. The mandible appears unremarkable. Soft tissues of the tongue appear normal. Both parotid glands are unremarkable. Nasopharyngeal soft tissues appear normal. These findings are based on the coronal and sagittal images. Axial images are nondiagnostic due to motion artifact. IMPRESSION: 1. Markedly limited exam due to motion artifact. 2. Right submandibular gland is absent, presumably previously surgically removed, there is no evidence of focal mass or focal fluid collection. 3. The mandible appears unremarkable as well. 4. Otherwise unremarkable exam although limited as described.
--- NOTE | 2024-03-24 18:20 | NUR ---
DC NOTE AFTER MRI OF FACE NAD NECK PT REQUEST TO LEAVE. EDUCATE PT ABOUT AMA AND WAITING FOR RESULTS ON MRI AND PT STATE " I'M GOING TO [facility] TO GET EVERYTHING DONE I FEEL BETTER I JUST WANT TO LEAVE, I WAS NOT TRYING TO STAY HERE AND SPEND ANOTHER NIGHT IN THE HOSPITAL, I DROVE MYSELF HERE I HAVE MY OWN VEHICLE I CAN JUST GO AND BESIDES I DIDN'T ALLOW THEM TO FINISH THE MRI." ANTONY HEARN MD AWARE OF PT WANTING TO LEAVE AMA, NADIYA SPOKE TO PT AND IS STILL WANTING TO LEAVE. Shahla HEARN STATED TO GO AHEAD WITH THE AMA FORM TO GET IT SIGN. PT SIGNED AMA FORM, PIV REMOVED, AND IS WALKED DOWN WITH HOOK UP TO MAIN LOBBY SINCE PT DID NOT KNOW HIS WAY DOWN AND REFUSED WHEELCHAIR. NO FURTHER COMMENTS OR CONCERNS AT THIS TIME.
[2024-03-24] MEDS ORDERED: metoPROLOL tartRATE 25 MG TAB PO SCH (21:00)
[2024-03-24] MEDS ORDERED: APIXaban 5 MG TABLET PO SCH (21:00)
[2024-03-24] MEDS ORDERED: finaSTERide 5 MG TABLET PO SCH (21:00)
[2024-03-25] MEDS ORDERED: levoTHYROxine 88 MCG TABLET PO SCH (06:30)
--- NOTE | 2024-03-25 17:56 | DS ---
Discharge Summary Hospital Course Summary: The patient is a 73-year-old male with a past medical history of hypertension, CAD, post CABG in November 13, 2023, type 2 diabetes mellitus s/p amputation on left foot metatarsals, GERD, neck cancer in remission 15 years ago, and chronic kidney disease presented to ED on 03/23 with a chief complaint of 2 days of constant, throbbing type of neck pain on the right submandibular area. He has been following the ENT since resection of neck cancer since past 15 years consistently and the last appointment was 1 week ago. About 5 days ago, he has noticed a swelling in the submandibular area and thought of visiting ER yesterday since it was not subsiding down. On presentation, vitals were within normal limits. Labs showed potassium 5.3, carbon dioxide 34, BUN 20, creatinine 1.9, GFR 37. CT neck soft tissue without contrast showed postop changes. Area of attention was not addressed by the radiology service in the radiology report therefore emergency room physician contacted radiologist montessori toddler teacher, who recommended the patient to get an MRI in a.m. for further evaluation. CT cervical spine without contrast showed only degenerative changes. He received 0.9% Na Cl bolus and lokemia 5 g p.o. for hyperkalemia. He was admitted on the medical surgical floor on 03/23/24 for the management of JORGE and mass of the right side of the neck on submandibular region. On the 2nd day of hospitalization, his kidney functions were improved and went for MRI for further management of Right sided submandibular swelling. However, the patient felt claustrophobic and could not finish the MRI. Afterwards, the patient signed out against medical advise from [facility]. He said he does not want to stay to the hospital and will go to [place] for the evaluation of right mandibular mass. As per primary nurse, the patient does not wish to continue any treatment at this time and refusing to stay and complete evaluation and disposition. The patient is fully aware of all risks and benefits of leaving against medical advise. Possible benefits include correction of the current medical condition and improvement of symptoms. However, the patient was advised that possible risks of leaving against medical advise includes worsening of the current medical condition, including . The patient verbalized understanding of the risks and benefits discussed. Despite this, the patient left against medical advise. Procedure(s): [facility] [address] [place] [address] [id number] IMAGING REPORT Signed PATIENT: DAHLIA SALAZAR MR#: [id number] : 1950 SEX: M AGE: 73 LOCATION: [facility] ORDER 10 STATUS: REG ER REPORT#: [id number] SERVICE 08 REASON: new 1 week right submandibular mass , history of H/N cancer ORDERING PHYSICIAN: DAHLIA BEYER MD PROCEDURE: NKSOFTI WO - CT NECK SOFT TISS W/O CONTRAST ADDENDUM REPORT Case was discussed with the referring physician. There appears to postop changes in the right centimeter area. Right seminal gland is not well visualized. There are cervical lymph nodes. For evaluation with MRI with and without contrast is recommended. There is atherosclerosis. DICTATED BY: CHERRIE RAYMOND MD DATE: 03/23/242330 ELECTRONICALLY SIGNED BY: CHERRIE RAYMOND MD DATE: 03/23/242336 Exam Type: CT cervical spine without contrast Clinical Information: new 1 week right submandibular mass , history of H/N cancer Comparison: None Technique: Spiral axial images were performed from the base of the skull down to the thoracic vertebral bodies. Both sagittal and coronal reconstructions were performed. CT Dose Index (CTDI): 12.85 mGy Dose Length Product (DLP): 282.6 total Findings: There are degenerative changes. Degenerative disc disease is noted at multiple levels. There is reversal of normal cervical lordosis consistent with degeneration and spasm. There are no fractures. There is facet hypertrophy at multiple levels. IMPRESSION: Degenerative changes as noted. No acute pathology. No fractures seen. This study was performed using dose reduction techniques to include automated exposure control and/or adjustment of the mA and/or kV according to patient size. DICTATED BY: AYAH EDWARDS MD DATE: 03/23/242148 ELECTRONICALLY SIGNED BY: AYAH EDWARDS MD DATE: 03/23/242152 [place] [id number] [place] [address] [id number] IMAGING REPORT Signed PATIENT: DAHLIA SALAZAR MR#: [id number] : 1950 SEX: M AGE: 73 LOCATION: [facility] ORDER STATUS: ADM IN [facility]ALTH - [facility] REPORT#: [id number] SERVICE REASON: right submandibular pain and swelling ORDERING PHYSICIAN: SERVANDO SALAZAR PROCEDURE: FACEWO - MRI FACE WO CONT MRI FACE WO CONT REASON: right submandibular pain and swelling COMPARISON: None TECHNIQUE: Routine imaging protocol was performed in the axial, sagittal and coronal plane with T1, proton density, T2 and gradient recalled sequences. Patient had difficulty breathing during the axial images, there is significant motion artifact, patient requested the exam. FINDINGS: Left submandibular gland appears unremarkable. The right submandibular gland appears absent. There are no focal fluid collections. There is no increased signal intensity to suggest inflammation. The mandible appears unremarkable. Soft tissues of the tongue appear normal. Both parotid glands are unremarkable. Nasopharyngeal soft tissues appear normal. These findings are based on the coronal and sagittal images. Axial images are nondiagnostic due to motion artifact. IMPRESSION: 1. Markedly limited exam due to motion artifact. 2. Right submandibular gland is absent, presumably previously surgically removed, there is no evidence of focal mass or focal fluid collection. 3. The mandible appears unremarkable as well. 4. Otherwise unremarkable exam although limited as described. DICTATED BY: LORENA MOORE MD DATE: 03/24/241637 ELECTRONICALLY SIGNED BY: LORENA MOORE MD DATE: 03/24/241642 Assessment/Plan: ASSESSMENT: Acute kidney injury, GFR improving, POA Right submandibular swelling, POA H/o neck cancer, s/p resection of the tumor 15 years ago, in remission CAD s/p CABG in October, Hypertension, POA Neck pain, POA Diabetes mellitus type2 Gastroesophageal reflux disease Admission Date: 03/23/2024 The patient left against medical advice on 03/25/2024 Procedures: None Imaging report: Please find the attached Discharge instructions: The patient was advised to visit the nearest emergency department or call 911 should experience any life threatening symptoms. Discharge Instructions: ATTESTATION BY PHYSICIAN I have seen and examined the patient. I reviewed the documentation, medical decision making, and treatment plan as noted by the resident provider above. I agree with the findings and plan of care. Latosha Palm MD Home Medications: Reported Medications Cholecalciferol (Vitamin D3) (Vitamin D3) 125 Mcg (5000 Unit) Tab.rapdis, 1 TAB PO DAILY for 30 Days, #30 TAB 0 Refills 03/24/24 Nitroglycerin (Nitroglycerin) 0.4 Mg Tab.subl, 1 TAB SL AD for chest pain, #25 TAB 0 Refills 1st sign of attack; may repeat every 5 mins; if pain persists after 3 in 15 min, medical attention is recommended 03/24/24 Sucralfate (Sucralfate) 1 Gram/10 Ml Oral.susp, 10 ML PO QID 03/24/24 Empagliflozin (Jardiance) 25 Mg Tablet, 0.5 TAB PO DAILY 03/24/24 Metoprolol Tartrate (Lopressor) 25 Mg Tab, 1 TAB PO BID 03/24/24 Levothyroxine Sodium (Levothyroxine Sodium) 88 Mcg Tablet, 1 TAB PO DAILY 03/24/24 Ipratropium [place] (Atrovent 0.03% Nasal Haena) 21 Mcg (0.03 %) Ha[place], 2 SPRY EN Q12H 03/24/24 Amiodarone HCl (Amiodarone HCl) 200 Mg Tablet, 0.5 TAB PO DAILY 03/24/24 Finasteride (Finasteride) 5 Mg Tablet, 1 TAB PO HS 03/24/24 Lansoprazole (Lansoprazole) 30 Mg Capsule.dr, 1 CAP PO DAILY 03/24/24 Apixaban (Eliquis) 5 Mg Tablet, 1 TAB PO BID 03/24/24 Ferrous Gluconate (Ferrous Gluconate) 324 Mg (38 Mg Iron) Tablet, 1 TAB PO BID 03/24/24 Atorvastatin Calcium (Atorvastatin Calcium) 20 Mg Tablet, 1 TAB PO DAILY 03/24/24 Time spent arranging discharge: 31-60 minutes ATTESTATION BY PHYSICIAN I have seen and examined the patient. I reviewed the documentation, medical decision making, and treatment plan as noted by the resident provider above. I agree with the findings and plan of care. Latosha Palm MD, MANALI MD Mar 25, 2024 17:56
[2024-03-25] MEDS ORDERED: atorVAStatin 20 MG TABLET PO SCH (21:00)
== END 2024-03-24 18:20 | disposition left against medical advice (07) ==
LOC: EDH 19:19 → INTOOBSV 23:49 → EDHIP 23:49 → 3CH 03-24 01:54
PROVIDERS: ADMIT Internal Medicine; ATTEND Internal Medicine
DX: N17.9 Acute kidney failure, unspecified (principal); R22.1 Localized swelling, mass and lump, neck; C76.0 Malignant neoplasm of head, face and neck; I12.9 Hypertensive chronic kidney disease with stage 1 through stage 4 chronic kidney disease, or unspecified chronic kidney disease; E11.22 Type 2 diabetes mellitus with diabetic chronic kidney disease; N18.9 Chronic kidney disease, unspecified; L97.929 Non-pressure chronic ulcer of unspecified part of left lower leg with unspecified severity; L97.919 Non-pressure chronic ulcer of unspecified part of right lower leg with unspecified severity; M54.2 Cervicalgia; I25.10 Atherosclerotic heart disease of native coronary artery without angina pectoris; K21.9 Gastro-esophageal reflux disease without esophagitis; E87.5 Hyperkalemia; F40.240 Claustrophobia; Z88.0 Allergy status to penicillin; Z95.1 Presence of aortocoronary bypass graft; Z79.899 Other long term (current) drug therapy
CPT/HCPCS: 99284; 70490; 80053; 85025 ×2; 36415 ×2; 96361; 70540; 96360; 83036; 82570; 83735; 84100; 80048; 84300; 82948 ×3; 83935; A6248; G0378; J7030; 99285; J1644